=== PATIENT | male | born 1975 | race Caucasian/White ===

== ENCOUNTER 2018-12-09 22:08 | Emergency (ER) | payer SELFPAY ==
[2018-12-09 22:13] VITALS: BP 128/74; PULSE 82; RESP 18; TEMP 97.6
--- NOTE | 2018-12-09 22:59 | ED ---
Skin/Abscess/FB HPI - General Chief complaint: Skin/Abscess/Foreign Body Stated complaint: infected ingrown hair Time Seen by Provider: 12/09/18 22:22 Source: patient, RN notes reviewed, old records reviewed Mode of arrival: ambulatory Limitations: no limitations - History of Present Illness Initial comments: This is a 43-year-old male presents emergency department today for evaluation. Patient comes in for a wound in his right groin. He reports an ingrown hair that was incised and drained one week ago. He reports his been following up with physicians every 2 days ago the past. Patient reports he returned home from [place] when the wound was originally opened up. He states that today was 2 days after his last packing. Patient states that he was told that the culture was not sensitive to Bactrim but was sensitive to Augmentin or clindamycin and needs more antibiotics. - Related Data Previous Rx's Medication Instructions Recorded Clindamycin [Cleocin] 450 mg PO TID 7 Days capsule 12/09/18 Allergies Allergy/AdvReac Type Severity Reaction Status Date / Time No Known Allergies Allergy Verified 12/09/18 22:13 Review of Systems ROS Statement: Those systems with pertinent positive or pertinent negative responses have been documented in the HPI. ROS Other: All systems not noted in ROS Statement are negative. Past Medical History Past Medical History: No Reported History History of Any Multi-Drug Resistant Organisms: None Reported Past Surgical History: No Surgical Hx Reported Past Psychological History: No Psychological Hx Reported Smoking Status: Current every day smoker Past Alcohol Use History: Occasional Past Drug Use History: None Reported General Exam - General Exam Comments Initial Comments: His is a [id number] male. Alert and oriented 3. No distress. Limitations: no limitations Head exam: Present: atraumatic, normocephalic, normal inspection Eye exam: Present: normal appearance, PERRL, EOMI. Absent: scleral icterus, conjunctival injection, periorbital swelling ENT exam: Present: normal exam, mucous membranes moist Neck exam: Present: normal inspection. Absent: tenderness, meningismus, lymphadenopathy Respiratory exam: Present: normal lung sounds bilaterally. Absent: respiratory distress, wheezes, rales, rhonchi, stridor Cardiovascular Exam: Present: regular rate, normal rhythm, normal heart sounds. Absent: systolic murmur, diastolic murmur, rubs, gallop, clicks GI/Abdominal exam: Present: soft, normal bowel sounds. Absent: distended, tenderness, guarding, rebound, rigid Extremities exam: Present: normal inspection, full ROM, normal capillary refill, other (2 cm right groin open wound. Packing was removed.). Absent: tenderness, pedal edema, joint swelling, calf tenderness Back exam: Present: normal inspection Neurological exam: Present: alert, oriented X3, CN II-XII intact Psychiatric exam: Present: normal affect, normal mood Course Vital Signs 12/09/18 22:09 Temperature 97.6 F Pulse Rate 82 Respiratory 18 Rate Blood Pressure 128/74 O2 Sat by Pulse 100 Oximetry Medical Decision Making - Medical Decision Making 43-year-old male presented today for evaluation for right groin wound repacking. He reports that he has been on Bactrim for the past week but reports that this cultures were not sensitive to Bactrim from the original incision and drainage. That his caregiver that time and requested he be switched to clindamycin or Augmentin. Patient will be switched to clindamycin. I discussed with Patient that he needs to have follow-up with wound care clinic. I did dress and repacked his wound. Disposition Clinical Impression: Groin abscess Disposition: HOME SELF-CARE Condition: Good Instructions (If sedation given, give patient instructions): Abscess (ED) Additional Instructions: Patient has a follow-up with a general surgeon or primary care physicians for repacking in 2 days. Patient can follow-up with wound care center as well, Call [phone]. Return to the emergency department if any alarming signs or symptoms occur. Prescriptions: Clindamycin [Cleocin] 450 mg PO TID 7 Days capsule Is patient prescribed a controlled substance at d/c from ED?: No Referrals: None,Stated [Primary Care Provider] - 1-2 days Ivone Whipple MD [STAFF PHYSICIAN] - 1-2 days Time of Disposition: 22:59
== END 2018-12-09 23:30 | disposition home or self-care (01) ==
LOC: EC 22:08
DX: L02.214 Cutaneous abscess of groin (principal); F17.200 Nicotine dependence, unspecified, uncomplicated
CPT/HCPCS: 99283